=== PATIENT | female | born 1955 | race Caucasian/White ===

== ENCOUNTER 2016-12-29 10:18 | Emergency (ER) | payer MEDICARE, MEDICAID | END 2016-12-29 11:32 | disposition home or self-care (01) | LOC: D.ER 10:18 | DX: M54.5 Low back pain (principal); F17.200 Nicotine dependence, unspecified, uncomplicated ==

== ENCOUNTER 2017-02-12 11:55 | Emergency (ER) | payer MEDICARE ==
[2017-02-12 13:32] LABS: APPEARANCE HAZY (CLEAR); COLOR YELLOW (YELLOW)
[2017-02-12 13:33] LABS: BACTERIA FEW /hpf (NONE SEEN); BILIRUBIN NEGATIVE (NEGATIVE); EPITHELIAL CELLS 0-5 /hpf (0-5); GLUCOSE NEGATIVE (NEGATIVE); KETONE NEGATIVE (NEGATIVE); MUCUS <1+ /lpf (NONE SEEN); NITRITE NEGATIVE (NEGATIVE); PROTEIN NEGATIVE (NEGATIVE); WHITE CELLS - URINE 0-5 /hpf (0-5)
== END 2017-02-12 14:00 | disposition home or self-care (01) ==
LOC: D.ER 11:55
PROVIDERS: Nurse Practitioner Family
DX: M54.5 Low back pain (principal); M62.838 Other muscle spasm; F17.200 Nicotine dependence, unspecified, uncomplicated

== ENCOUNTER 2017-02-17 14:46 | Emergency (ER) | payer MEDICARE ==
[2017-02-17 16:53] LABS: APPEARANCE HAZY (CLEAR); BILIRUBIN NEGATIVE (NEGATIVE); COLOR DK YELLOW (YELLOW); GLUCOSE NEGATIVE (NEGATIVE); KETONE NEGATIVE (NEGATIVE); NITRITE NEGATIVE (NEGATIVE); PROTEIN NEGATIVE (NEGATIVE); UROBILINOGEN NORMAL (NORMAL)
[2017-02-17 16:55] LABS: BACTERIA FEW /hpf (NONE SEEN); WHITE CELLS - URINE 0-5 /hpf (0-5)
== END 2017-02-17 17:00 | disposition home or self-care (01) ==
LOC: D.ER 14:46
PROVIDERS: Nurse Practitioner Family
DX: M54.5 Low back pain (principal); M62.830 Muscle spasm of back; F17.200 Nicotine dependence, unspecified, uncomplicated

== ENCOUNTER 2017-03-02 23:59 | Emergency (ER) | payer MEDICARE | END 2017-03-03 00:29 | disposition home or self-care (01) | LOC: D.ER 23:59 | DX: M54.2 Cervicalgia (principal); F17.200 Nicotine dependence, unspecified, uncomplicated; M54.5 Low back pain ==

== ENCOUNTER 2017-03-13 01:17 | Emergency (ER) | payer MEDICARE | END 2017-03-13 01:40 | disposition home or self-care (01) | LOC: D.ER 01:17 | DX: M54.5 Low back pain (principal) ==

== ENCOUNTER 2017-03-20 00:48 | Emergency (ER) | payer MEDICARE | END 2017-03-20 01:42 | disposition home or self-care (01) | LOC: D.ER 00:48 | DX: M54.5 Low back pain (principal); F17.200 Nicotine dependence, unspecified, uncomplicated ==

== ENCOUNTER 2017-03-26 00:15 | Emergency (ER) | payer MEDICARE | END 2017-03-26 01:00 | disposition home or self-care (01) | LOC: D.ER 00:15 | DX: M54.2 Cervicalgia (principal); M54.5 Low back pain; G89.29 Other chronic pain ==

== ENCOUNTER 2017-04-01 01:13 | Emergency (ER) | payer MEDICARE | END 2017-04-01 01:52 | disposition home or self-care (01) | LOC: D.ER 01:13 | DX: M54.6 Pain in thoracic spine (principal); F17.200 Nicotine dependence, unspecified, uncomplicated ==

== ENCOUNTER 2017-04-02 13:49 | Emergency (ER) | payer MEDICARE | END 2017-04-02 15:06 | disposition home or self-care (01) | LOC: D.ER 13:49 | DX: M54.5 Low back pain (principal); Z76.0 Encounter for issue of repeat prescription ==

== ENCOUNTER → 2018-04-22 20:44 | Outpatient (CLI) | payer MEDICARE | END | disposition home or self-care (01) | LOC: D.MAMMO 04-21 13:15 | DX: Z12.31 Encounter for screening mammogram for malignant neoplasm of breast (principal) ==

== ENCOUNTER 2018-12-24 09:00 | Outpatient (CLI) | payer MEDICARE | END 2018-12-24 10:00 | disposition home or self-care (01) | LOC: D.MAMMO 09:00 | PROVIDERS: ATTEND Family Medicine | DX: Z12.31 Encounter for screening mammogram for malignant neoplasm of breast (principal) ==